=== PATIENT | female | born 1935 | race Caucasian/White ===

== ENCOUNTER 2017-11-27 11:57 | Emergency (ER) | payer MEDICARE ==
[~2017-11-27] VITALS: Ht 170.2 cm; Wt 54.4 kg
[2017-11-27] MEDS ORDERED: VERAPAMIL ER120 MG PO (12:11)
[2017-11-27] MEDS ORDERED: LEVOT PO (12:11)
[2017-11-27] MEDS ORDERED: LEVOTHYROXINE25 MCG PO (12:13)
[2017-11-27] MEDS ORDERED: LISINOPRIL5 MG PO (12:14)
[2017-11-27] MEDS ORDERED: ALBUTEROL SULF 0.083% NEB SOLN 3 ML NEB NEB STA (12:19)
[2017-11-27] MEDS ORDERED: METHYLPREDNISOLONE SOD SUCC 125 MG/2ML VIAL IV ONE (12:30)
[2017-11-27] MEDS ORDERED: IPRATROPIUM BROMIDE 0.02% 2.5 ML NEB NEB ONE (12:30)
[2017-11-27 12:44] LABS: BASOPHILS # (AUTO) 0.1 (0.0-0.1); BASOPHILS % 0.4 % (0.0-1.0); HEMOGLOBIN 13.9 g/dL (12.0-16.0); LYMPHOCYTES # (AUTO) 0.7 (1.0-3.2); LYMPHOCYTES % 5.8 % (18.0-39.1); MEAN CORPUSCULAR HGB CONC 32.3 g/dL (31-35); MEAN CORPUSCULAR VOLUME 89.6 fL (81-99); MONOCYTES # (AUTO) 1.3 (0.2-0.8); MONOCYTES % 10.4 % (4.4-11.3); NEUTROPHILS # (AUTO) 10.1 (2.1-6.9); NEUTROPHILS % 82.8 % (38.7-80.0); PLATELET COUNT 209 x10e3/uL (140-360); RED CELL DISTRIBUTION WIDTH 12.4 % (11.7-14.4)
[2017-11-27 13:00] LABS: STREPTOCOCCUS GRP A ANTIGEN NEGATIVE (NEGATIVE)
--- NOTE | 2017-11-27 13:01 | Diagnostic Imaging Report ---
Portable chest x-ray CPT code 40831 INDICATION: Cough COMPARISON: None FINDINGS: Frontal view of the chest obtained at 1012 hours. The cardiac silhouette is mildly enlarged. The aorta is ectatic without gross chronic calcifications in the arch. The pulmonary vascular marking are pulmonary veins are prominent. The lungs demonstrate diffuse hyperinflation. Calcifications in the right upper lobe and left midlung field measuring less than 10 mm. No soft tissue mass. The costophrenic angles are sharp. There is no pneumothorax. The osseous structures are diffusely demineralized. Dextroscoliosis of the midthoracic spine is present. No focal osseous lesions. IMPRESSION: 1. Pulmonary hyperinflation consistent with emphysema. 2. Mild cardiomegaly and pulmonary venous hypertension. 3. Healed granulomatous inflammation. Signed by: Dr. Héctor Claudio MD on 11/27/2017 12:57 PM
[2017-11-27 13:04] LABS: ALANINE AMINOTRANSFERASE 11 IU/L (0-55); ALBUMIN 3.4 g/dL (3.5-5.0); ALBUMIN/GLOBULIN RATIO 0.9 (0.8-2.0); ALKALINE PHOSPHATASE 61 IU/L (40-150); BLOOD UREA NITROGEN 13 mg/dL (7-26); BUN/CREATININE RATIO 20 (6-25); CALCIUM 9.5 mg/dL (8.4-10.2); CARBON DIOXIDE 25 mmol/L (22-29); CHLORIDE 99 mmol/L (98-107); CREATININE, SERUM 0.66 mg/dL (0.57-1.11); EST GLOMERULAR FILTRATION RATE > 60 ML/MIN (60-); GLUCOSE 139 mg/dL (74-118); MAGNESIUM 1.7 MG/DL (1.3-2.1); SODIUM 137 mmol/L (136-145)
[2017-11-27 13:12] LABS: INFLUENZAE A&B ANTIGEN (RAPID) NEGATIVE (NEGATIVE)
[2017-11-27 13:17] LABS: BILIRUBIN,URINE 1+ (NEGATIVE); CLARITY,URINE CLEAR (CLEAR); COLOR,URINE YELLOW (YELLOW); KETONES,URINE 3+ (NEGATIVE); LEUKOCYTE ESTERASE ,URINE NEGATIVE (NEGATIVE); NITRITE,URINE NEGATIVE (NEGATIVE); PROTEIN,URINE DIPSTICK 3+ (NEGATIVE); URINE UROBILINOGEN 4 mg/dL (0.2 - 1)
[2017-11-27 13:22] LABS: BACTERIA,URINE RARE /HPF; EPITHELIAL CELLS,URINE FEW /LPF
[2017-11-27] MEDS ORDERED: SODIUM CHLORIDE 0.9% 500ML 500 ML IV ONE (14:00)
== END 2017-11-27 15:28 | disposition home or self-care (01) ==
LOC: ER 11:57
DX: J20.9 Acute bronchitis, unspecified (principal); J45.909 Unspecified asthma, uncomplicated; R06.09 Other forms of dyspnea; Z87.891 Personal history of nicotine dependence
CPT/HCPCS: 36415; 71010; 80053; 81001; 83518; 83735; 85025; 87070 ×2; 87205; 87400; 93005; 99284; J2930; J7040

== ENCOUNTER 2018-09-14 14:51 | Emergency (ER) | payer MEDICARE, OTHER ==
[~2018-09-14] VITALS: Ht 167.6 cm; Wt 53.1 kg
[~2018-09-14 14:51] MED LIST: LEVOT PO; LEVOTHYROXINE25 MCG PO; LISINOPRIL5 MG PO; VERAPAMIL ER120 MG PO
--- OUTSIDE RECORDS SUMMARY | 2018-09-14 14:54 | XMS REPORT ---
[facility] Address Unknown Phone Unavailable Care Team Providers Care Security Incident Response Engineer Name Role Phone Matt MINAYA Unavailable Unavailable Problems This patient has no known problems. Allergies, Adverse Reactions, Alerts This patient has no known allergies or adverse reactions. Medications This patient has no known medications. Results Test Description Test Time Test Comments Text Results Atomic Results Result Comments CHEST SINGLE (PORTABLE) [place] [address] Patient Name: MILENA HO MR #: [id number] : 1935 Age/Sex: 82/F Req #: [id number] Adm Physician: Ordered by: JOSSE BISHOP NP Report #: [id number] Location: ER Room/Bed: Procedure: [id number] DX/CHEST SINGLE (PORTABLE) Exam Date: 11/27/17 Exam Time: 1220 REPORT STATUS: Signed Portable chest x-ray CPT code 39440 INDICATION: Cough COMPARISON: None FINDINGS: Frontal view of the chest obtained at 1012 hours. The cardiac silhouette is mildly enlarged. The aorta is ectatic without gross chronic calcifications in the arch. The pulmonary vascular marking are pulmonary veins are prominent. The lungs demonstrate diffuse hyperinflation. Calcifications in the right upper lobe and left midlung field measuring less than 10 mm. No soft tissue mass. The costophrenic angles are sharp. There is no pneumothorax. The osseous structures are diffusely demineralized. Dextroscoliosis of the midthoracic spine is present. No focal osseous lesions. IMPRESSION: 1. Pulmonary hyperinflation consistent with emphysema. 2. Mild cardiomegaly and pulmonary venous hypertension. 3. Healed granulomatous inflammation. Signed by: Dr. Chace Claudio MD on 11/27/2017 12:57 PM Dictated By: HCACE CLAUDIO MD [id number] Transcribed By: KARLA on 11/27/17 1257 COPY TO: JOSSE BISHOP NP
[2018-09-14 17:21] LABS: BASOPHILS % 0.7 % (0.0-1.0); EOSINOPHILS # (AUTO) 0.1 (0.0-0.4); EOSINOPHILS % 1.8 % (0.0-6.0); HEMATOCRIT 43.7 % (34.2-44.1); HEMOGLOBIN 13.9 g/dL (12.0-16.0); LYMPHOCYTES # (AUTO) 1.1 (1.0-3.2); LYMPHOCYTES % 19.5 % (18.0-39.1); MEAN CORPUSCULAR HEMOGLOBIN 28.8 pg (28-32); MEAN CORPUSCULAR HGB CONC 31.8 g/dL (31-35); MEAN CORPUSCULAR VOLUME 90.7 fL (81-99); NEUTROPHILS # (AUTO) 3.4 (2.1-6.9); NEUTROPHILS % 60.8 % (38.7-80.0); PLATELET COUNT 219 x10e3/uL (140-360); RED BLOOD COUNT 4.82 x10e6/uL (3.6-5.1); RED CELL DISTRIBUTION WIDTH 12.6 % (11.7-14.4)
[2018-09-14 17:27] LABS: CLARITY,URINE SL CLOUDY (CLEAR); COLOR,URINE YELLOW (YELLOW)
[2018-09-14 17:28] LABS: BILIRUBIN,URINE NEGATIVE (NEGATIVE); KETONES,URINE TRACE (NEGATIVE); LEUKOCYTE ESTERASE ,URINE NEGATIVE (NEGATIVE); NITRITE,URINE NEGATIVE (NEGATIVE); PROTEIN,URINE DIPSTICK NEGATIVE (NEGATIVE); URINE UROBILINOGEN 0.2 mg/dL (0.2 - 1)
[2018-09-14 17:34] LABS: BACTERIA,URINE FEW /HPF; EPITHELIAL CELLS,URINE MODERATE /LPF; RBC,URINE 0-5 /HPF (0-5)
[2018-09-14 17:44] LABS: ALANINE AMINOTRANSFERASE 14 IU/L (0-55); ALBUMIN 3.7 g/dL (3.5-5.0); ALBUMIN/GLOBULIN RATIO 1.4 (0.8-2.0); ALKALINE PHOSPHATASE 55 IU/L (40-150); ANION GAP 14.7 mmol/L (8-16); BLOOD UREA NITROGEN 9 mg/dL (7-26); BUN/CREATININE RATIO 15 (6-25); CALCIUM 9.4 mg/dL (8.4-10.2); CARBON DIOXIDE 28 mmol/L (22-29); CHLORIDE 99 mmol/L (98-107); CREATINE KINASE 53 IU/L (29-168); CREATININE, SERUM 0.62 mg/dL (0.57-1.11); EST GLOMERULAR FILTRATION RATE > 60 ML/MIN (60-); GLUCOSE 98 mg/dL (74-118); MAGNESIUM 1.9 MG/DL (1.3-2.1); POTASSIUM 3.7 mmol/L (3.5-5.1); SODIUM 138 mmol/L (136-145)
--- NOTE | 2018-09-14 17:49 | Diagnostic Imaging Report ---
EXAMINATION: CHEST SINGLE (PORTABLE) INDICATION: Cough, rule out pneumonia. Phlegm and drainage for one week. ^ERMD ORDER ^Y COMPARISON: Chest radiograph 11/27/2017 FINDINGS: AP view TUBES and LINES: None. LUNGS: Lungs are hyper inflated in keeping with emphysema. Scattered calcifications likely representing calcified granulomas. There is no evidence of pneumonia or pulmonary edema. PLEURA: No pleural effusion or pneumothorax. HEART AND MEDIASTINUM: The cardiomediastinal silhouette is unremarkable. Aortic calcifications. Stable hilar prominence. BONES AND SOFT TISSUES: No acute osseous lesion. Soft tissues are unremarkable. UPPER ABDOMEN: No free air under the diaphragm. IMPRESSION: No acute thoracic abnormality. Signed by: DR. Nathan Madison MD on 09/14/2018 5:46 PM
== END 2018-09-14 19:25 | disposition home or self-care (01) ==
LOC: ER 14:51
DX: R05 Cough (principal); J02.9 Acute pharyngitis, unspecified; I10 Essential (primary) hypertension; F41.9 Anxiety disorder, unspecified; E07.9 Disorder of thyroid, unspecified
CPT/HCPCS: 36415; 71045; 80053; 81001; 82550; 82553; 83735; 83880; 84484; 85025; 87086; 93005; 99284